=== PATIENT | female | born 1975 | race Caucasian/White ===

== ENCOUNTER 2019-10-09 00:53 | Inpatient (IN) ==
--- NOTE | 2019-10-09 01:31 | PROVIDER DOCUMENTATION ---
HPI-General Adult - General Chief Complaint: Seizure Stated Complaint: seizures Time Seen by Provider: 10/09/19 00:58 Source: other (caregiver) Allergies/Adverse Reactions: Patient Allergies Allergy/AdvReac Type Severity Reaction Status Date / Time Sulfa (Sulfonamide Allergy Unknown Verified 09/08/19 20:40 Antibiotics) Thiazides Allergy Unknown Verified 09/08/19 20:40 vancomycin Allergy RASH Verified 09/08/19 20:40 loop diuretics Allergy VOMITING Uncoded 08/01/18 14:11 Home Medications: Home Medication List Medication Instructions Recorded Confirmed Last Taken Type Ibandronate [Boniva] 150 mg PO Q30D 09/11/15 09/08/19 08/01/18 History Megestrol Acetate 40 mg PO BID 09/11/15 09/08/19 08/01/18 History Oxcarbazepine 1,200 mg PO BID 09/11/15 09/08/19 08/01/18 History Polyethylene Glycol [Polyox 17 gm PO BID 09/11/15 09/08/19 08/01/18 History [id number]] Vit,Calc78/Iron/Folic 1 each PO QAM 09/11/15 09/08/19 08/01/18 History [Prenatabs FA Tablet] Calcium Carbonate [Calcium] 600 mg PO BID 04/07/18 09/08/19 08/01/18 History Montelukast Sodium 10 mg PO DAILY 04/07/18 09/08/19 08/01/18 History Ranitidine [Zantac] 150 mg PO BID 04/07/18 09/08/19 08/01/18 History Lamotrigine 250 mg PO BID #0 08/04/18 09/08/19 08/01/18 Rx Diphenhydramine [Benadryl] 25 mg PO Q4-6H PRN PRN #20 cap 09/08/19 Unknown Rx Famotidine [Pepcid] 20 mg PO BID #20 tab 09/08/19 Unknown Rx Ondansetron [Zofran] 4 mg PO Q4H PRN PRN #30 tab 10/09/19 Unknown Rx Oseltamivir [Tamiflu] 75 mg PO BID #10 cap 10/09/19 Unknown Rx - History of Present Illness -Gen Adult Nature of Presenting Problems: 43yo female presents from care facility with cargiver with CC of seizure like activity and nausea and vomiting. The pt has dx of cognitive imparment from and DPOA is the state. The customer care associate reports that the patient has been having vomiting without diarrhea or abdominal pain. The patient has been having twitching spells that the staff were concerned were seizures. The patient has a hx of "drop" episodes and did have a drop episode yesterday and hit her head. Per the customer care associate the patient is currently at her baseline mental status. The pt has known hx of seizures, but the CC was not like her classic seizures which are generalized. The patient has had foul smelling urine, but no increased frequency. There was a possible fever yesterday at the facility. Review of Systems - Adult - REVIEW OF SYSTEMS - ADULT ROS:: ROS per family (caregiver) Constitutional: reports: fever Eyes: reports: other (injury to the eyelid after fall.) Ears, Nose, Mouth & Throat: reports: other (swallowing difficulty chronic) Cardiovascular: reports: no symptoms reported Respiratory: reports: no symptoms reported. denies: shortness of breath Gastrointestinal: reports: vomiting. denies: abdominal pain, diarrhea Genitourinary: reports: other (foul smelling urine). denies: frequency Musculoskeletal: reports: no symptoms reported Integumentary: reports: no symptoms reported Neurological: reports: seizure Psychiatric: reports: no symptoms reported Endocrine: reports: no symptoms reported Hematologic/Lymphatic: reports: no symptoms reported Allergic/Immunologic: reports: no symptoms reported Past History - Adult - PAST MEDICAL HISTORY-ADULT Review of Records: reports: Old Records Reviewed Major Childhood Illnesses: reports: denies history Cardiovascular: reports: denies history Respiratory: reports: denies history Gastrointestinal: reports: denies history Obstetrical/Gynecological: reports: denies history Genitourinary: reports: denies history Musculoskeletal: reports: denies history Neurological: reports: denies history Endocrine/Immune: reports: denies history Other Conditions: reports: denies history - PRIOR SURGERIES/PROCEDURES Surgical/Procedure History: reports: reviewed, not pertinent - IMMUNIZATION STATUS Childhood Immunizations: See Nurse Assessment Flu Vaccine: See Nurse Assessment - FAMILY HISTORY Family History: reviewed, not pertinent Physical Exam-General - PHYSICAL EXAM-ADULT Initial Vital Signs Reviewed: Yes - CONSTITUTIONAL General Appearance: appears well, alert, no apparent distress - EYES Eyes: other (PERRL). negative: conjuctival exudate, photophobia, scleral icterus - HEAD, EARS, NOSE, MOUTH & THROAT HENMT: normocephalic/atraumatic, moist mucous membranes - NECK Neck: non-tender, supple - RESPIRATORY Respiratory: normal breath sounds, no respiratory distress - CARDIOVASCULAR Cardiovascular: regular rate, rhythm, no edema - GASTROINTESTINAL (ABDOMEN) Abdominal Exam: non tender, soft - MUSCULOSKELETAL Extremity: non-tender. negative: deformity, swelling - SKIN Integumentary: normal color, warm/dry - NEUROLOGIC Neurologic: grossly normal - PSYCHIATRIC Psych/Mental Status: normal mood/affect Progress - PLAN OF CARE/RESULTS Progress/Plan/Lab Results: Orders Category Date Time Status Cardiac Monitoring DIRECTED Care 10/09/19 01:28 Ordered Oxygen Therapy- ED Nursing DIRECTED Care 10/09/19 01:28 Ordered Saline Loc NOW Care 10/09/19 01:28 Ordered CHEST-PORTABLE [RAD] Stat Exams 10/09/19 01:[address] HEAD W/O CONTRAST [CT] Stat Exams 10/09/19 01:29 Ordered CBC WITH ELECTRONIC DIFF [HEME] Stat Lab 10/09/19 01:28 Uncollected CK PROFILE [SP CHEM] Stat Lab 10/09/19 01:28 Uncollected COMPREHENSIVE METABOLIC PANEL [CHEM] Stat Lab 10/09/19 01:28 Uncollected LACTATE, PLASMA [CHEM] Stat Lab 10/09/19 01:28 Uncollected PROTIME WITH INR [COAG] Stat Lab 10/09/19 01:28 Uncollected PTT [COAG] Stat Lab 10/09/19 01:28 Uncollected TROPONIN T HIGH SENSITIVITY Stat Lab 10/09/19 01:28 Uncollected URINALYSIS [URINALYSIS] Stat Lab 10/09/19 01:29 Uncollected Altered Mental Status Stat Oth 10/09/19 01:27 Ordered EKG [EKG] Stat Ther 10/09/19 01:28 Ordered Patient signed out to me pending labs and CT Head. CT not showing anything ac lonny. UA negative, electrolyes normal, Flu A and B positive. Medication levels orders. Caregivers counseled on return precautions and the importance of followup. Patient deemed stable for DC with Neruology and PCP followup. Result Diagrams: 10/09/19 02:41 10/09/19 02:41 - CT/MRI 1 CT Study: Head Impression: Normal - CHANGE OF SHIFT REPORT (ED Provider) 1 Report Given and Care Transferred to:: Dr. Plummer Time of Transfer: 02:02 Items Pending: Labs, CT/MRI Results Departure - Departure Date of Disposition Decision: 10/09/19 Time of Disposition Decision: 04:01 DIAGNOSIS: Seizure disorder, Nausea & vomiting, Influenza Disposition: HOME 01 Certified Medical Emergency: Emergent Condition: Stable Additional Instructions: ED Follow Up Instructions: You have been treated by a care provider in the Emergency Department. These inst ructions are being provided to you so you can have an understanding of how to care for yourself upon discharge. Upon discharge from the Emergency Department, you are responsible for making arrangements for follow-up care by a physician of your choice. Take all prescribed medications as directed. Return to the Emergency Department immediately for any new or worsening symptoms. You may call the Physician Referral phone number at [phone] to obtain a list of Physicians who are taking new patients. Prescriptions: Oseltamivir [Tamiflu] 75 mg PO BID #10 cap Ondansetron [Zofran] 4 mg PO Q4H PRN PRN #30 tab PRN Reason: Nausea Referrals and Follow-Ups: None,PCP [Primary Care Provider] - - Critical Care Note This patient required my direct & personal management of CC.: No Attestation - Physician/ EMORY Attestation Patient care was provided by Advanced Practice Provider:: No The physician spent face to face time with patient:: Yes Advanced Practice Provider documentation review:: Supervising physician onsite and consulted in the evaluation and care of this patient. The physician did have a face to face encounter with the patient.
[2019-10-09 02:58] LABS: BASO# 0.02 X1000 (0.0-0.2); BASO% 0.2 % (0.0-0.8); EOS# 0.04 X1000 (0.0-0.7); EOS% 0.4 % (0.0-10.0); HEMOGLOBIN 14.5 g/dL (12.0-16.0); IMM GRAN# 0.03 X1000 (0.0-0.04); IMM GRAN% 0.3 % (0.0-0.5); LYMPH# 1.26 X1000 (1.2-3.4); LYMPH% 12.8 % (20.5-51.1); MCH 30.3 PG (27-31); MCHC 32.2 g/dL (33-37); MCV 93.9 FL (81-99); MONO# 0.74 X1000 (0.11-0.59); MONO% 7.5 % (1.7-9.3); MPV 9.3 FL (7.4-10.4); NEUT# 7.76 X1000 (1.4-6.5); NEUT% 78.8 % (42.2-75.2); PLT 323 X1000 (130-400); RBC 4.79 XMIL (4.2-5.4); RDW 14.8 % (11.5-14.5); WBC 9.85 X1000 (4.8-10.8)
[2019-10-09 03:02] LABS: INR 1.04; PROTIME 13.7 Seconds (11.0-16.0)
[2019-10-09 03:03] LABS: PTT 24.8 Seconds (22.3-41.8)
[2019-10-09] MEDS ORDERED: ATIVAN IV ONE ×2 (03:04→07:36)
[2019-10-09 03:20] LABS: AGAP 16; ALB/GLOB RATIO 1.2; ALKALINE PHOSPHATASE 91 U/L (32-104); BUN 17 mg/dL (8-22); CALCIUM 8.8 mg/dL (8.8-10.2); CHLORIDE 103 mmol/L (98-107); CK PROFILE 70 U/L (24-173); COSMO 283; CREATININE 0.8 mg/dL (0.5-0.9); ESTIMATED GFR > 60; GLUCOSE 106 mg/dL (70-104); GOT 139 U/L (10-30); GPT 211 U/L (10-36); POTASSIUM 4.4 mmol/L (3.5-5.1); SODIUM 141 mmol/L (136-145); TCO2 22 mmol/L (25-35); TOTAL BILIRUBIN 0.46 mg/dL (0.20-1.00); TOTAL PROTEIN 7.4 g/dL (6.3-8.3)
[2019-10-09 03:33] LABS: URINE SOURCE CATH
[2019-10-09] MEDS ORDERED: NS 1,000 ML IV ONE (03:34)
[2019-10-09 03:35] LABS: BILIRUBIN URINE NEGATIVE (NEGATIVE); BLOOD URINE SMALL (NEGATIVE); COLOR YELLOW; GLUCOSE URINE NEGATIVE (NEGATIVE); KETONE URINE 10 mg/dL (NEGATIVE); LEUKOCYTES URINE NEGATIVE (NEGATIVE); NITRITE URINE NEGATIVE (NEGATIVE); PROTEIN URINE 100 mg/dL (NEGATIVE); SP GRAVITY URINE 1.033; TURBIDITY URINE HAZY (CLEAR); UROBILINOGEN URINE NORMAL (NORMAL)
[2019-10-09 03:37] LABS: UR EPITHELIAL CELLS >10 /HPF (<10); URINE BACTERIA NEGATIVE /HPF; URINE RBC <10 /HPF (<10); URINE WBC <10 /HPF (<10)
[2019-10-09] MEDS ORDERED: ZOFRAN IV ONE (04:02)
[2019-10-09] MEDS ORDERED: KEPPRA 1,500 MG in NS 100 ML IV ONE (04:02)
[2019-10-09] MEDS ORDERED: TAMIFLU PO ONE (04:08)
[2019-10-09] MEDS ORDERED: DILANTIN IV ONE ×2 (07:36→09:00)
--- NOTE | 2019-10-09 07:52 | Diag Imaging Result Doc PS360 ---
EXAM: CHEST-PORTABLE 10/09/2019 HISTORY: Nausea, vomiting, abnormal behavior TECHNIQUE: AP portable at 0206 COMMENT: The patient is rotated slightly to the right. There is a granuloma in the left lower lobe. Considering differences in technique and projection there has been no significant change since 08/02/2018. IMPRESSION: No acute disease. Electronically signed by Logan Calderon 10/09/2019 7:50 AM
--- NOTE | 2019-10-09 08:08 | Diag Imaging Result Doc PS360 ---
EXAM: CT HEAD W/O CONTRAST 10/09/2019 HISTORY: Head injury TECHNIQUE: This exam was performed using automated exposure control, adjustment of mA or kV according to patient size, and/or use of iterative reconstruction technique. COMMENT: There is no evidence of mass effect, bleed, or abnormal extra-axial fluid collection. There is hyperostosis of the calvarium and calcification of the falx cerebri. Compared to the previous study of 04/07/2018 considering motion artifact on the current studies are has been no significant change. The paranasal sinuses are clear. IMPRESSION: No evidence of acute intracranial disease. Electronically signed by Logan Calderon 10/09/2019 8:06 AM
--- NOTE | 2019-10-09 08:55 | HISTORY AND PHYSICAL ---
PRIMARY CARE PHYSICIAN: MAHOGANY Blackwell. NEUROLOGIST: Dr. Marley. CHIEF COMPLAINT: Fever, chills, decreased alertness, decreased appetite, some nausea and vomiting, and seizure activity over the past couple of days that had progressively worsened. HISTORY OF PRESENTING ILLNESS: This is a 43-year-old, female with profound intellectual disabilities, resides [facility] a local [facility], presented to the emergency room with caregiver, stating that she had not eaten or drank anything over the past 2 days, had a subjective fever, chills, some possible seizure activity with a known history of seizures, and some nausea and vomiting. She has a history of "drop episodes," and did have a drop episode yesterday and hit her head, but is at her current baseline mental status and nonverbal. Per the caregiver at bedside, she is usually more alert with her eyes open and will talk some with her eyes, but today is very lethargic, not responding to very much stimuli. She was found to have influenza A and B. Her laboratory data was otherwise fairly unremarkable. She did have a bump in her AST and ALT at 139 and 211. Plasma lactate was 3. Urinalysis was negative. Chest x-ray showed no acute disease. We did a head CT, but that is pending at this time. She is tachycardic in the 140s and 150s, most likely from the flu and being dehydrated. She also is noted to have not taken her medications over the past couple of days, which is most likely the cause of the seizure activity, but we will admit her for further evaluation and treatment. PAST MEDICAL HISTORY: Profound intellectual disability, seizures, esophageal stricture, pica, osteopenia, and constipation. PAST SURGICAL HISTORY: Esophageal dilation from her stricture. FAMILY HISTORY: Reviewed and noncontributory. SOCIAL HISTORY: She currently resides at [facility]. No tobacco, alcohol, or illicit drug use. ALLERGIES: Sulfa, thiazides, vancomycin, loop diuretics. HOME MEDICATIONS: A current list will need to be obtained, reconciled, reviewed, and restarted when appropriate. Will place an order for nursing to update and confirm home medications. IMAGING AND LABORATORY DATA: Laboratory data showed a white blood cell count of 9.85, hemoglobin 14.5, hematocrit 45, platelets 323,000. PT and INR of 13.7 and 1.04. Sodium 141, potassium 4.4, chloride 103, CO2 of 22, BUN of 17, creatinine 0.8, glucose 106. AST of 139, ALT 211. Creatine kinase of 70. Troponin T high-sensitivity of 9. Plasma lactate was 3. Urinalysis was negative. Chest x-ray showed no acute disease. Head CT is pending. REVIEW OF SYSTEMS: Unable to obtain from the patient. Caregiver at bedside does state that she has had a subjective fever, chills, seizure activity, decreased appetite, and no medications. Also had some nausea and vomiting, and all of these have been over the past couple of days. PHYSICAL EXAMINATION: VITAL SIGNS: On arrival, she had a temperature of 98.2 degrees, pulse 58, respirations 20, blood pressure 135/78. She is now tachycardic in the 140s and 150s. GENERAL: This is a 43-year-old, profound intellectual disabled female, nonverbal, unable to answer any questions, is lying in the bed, noted to be shaking uncontrollably, which appears to be chills and not seizure activity at this time. HEENT: Normocephalic, atraumatic. Normal ENT inspection. Oropharynx and nares are clear. Eyes: Pupils are equal, round, reactive to light and accommodation. Extraocular movements are intact. NECK: Normal inspection. Normal range of motion. LUNGS: Clear to auscultation bilaterally with equal lung expansion and chest wall movement. HEART: Regular rate and rhythm. No murmurs, rubs, or gallops. ABDOMEN: Soft, nontender, nondistended. Bowel sounds are present x4 quadrants. MUSCULOSKELETAL: Unable to assess at this time. NEUROLOGIC: Unable to assess. The patient is known to be nonverbal and is noted to be lethargic at this time. ASSESSMENT: 1. Influenza A and B. 2. Tachycardia. 3. Elevated liver function tests. 4. Profound intellectual disability and nonverbal. 5. Recurrent seizures. PLAN: She will be admitted to the medical unit, placed on telemetry. Will give her a regular diet, and encourage her to drink and eat as much as possible. Will give her normal saline at 125 mL, Lovenox 40 mg subcutaneously every 24 hours for DVT prophylaxis. She got a first dose of Tamiflu 75 mg p.o. in the ER. Will continue that b.i.d. for 5 days. She got Dilantin 100 mg IV x1. She also got a dose of Keppra 1500 mg IV x1, Ativan 1 mg IV x2 separate doses. She got a liter bag of fluids. Will place her on respiratory isolation due to her flu. Will do serial lactates. Will recheck a CBC and BMP in the a.m. Will consult Neurology in the a.m. I feel that her seizure activity, 1) may be because she has not taken any of her medications in the past 2 days, and 2) some of what the caregiver feels is seizures, I witnessed to be chills and maybe even just some shaking, but we will have Neurology evaluate further. Further orders after seen by attending and middleware consultant. Dictated by MAHOGANY Helms for Vignesh Esparza MD cc: MAHOGANY Helms MD I agree with most components of history, physical, assessment and plan. A separate addendum has been dictated. MTDD
[2019-10-09] MEDS ORDERED: NS IV ONE (09:00)
[2019-10-09] MEDS ORDERED: TYLENOL PO PRN (10:27)
[2019-10-09] MEDS ORDERED: NS 1,000 ML IV SCH (10:27)
[2019-10-09] MEDS ORDERED: ZOFRAN IV PRN (10:27)
[2019-10-09] MEDS ORDERED: MISC. PHARMACY COMMUNICATION SCH (11:15)
[2019-10-09] MEDS: NS 1,000 ML IV SCH (13:37)
[2019-10-09] MEDS: LOVENOX SUBQ SCH (13:37)
--- NOTE | 2019-10-09 15:06 | HISTORY AND PHYSICAL ---
ADDENDUM: I agree with most components of the history, physical, assessment, and plan. In brief, Ms. Moreno is a 43-year-old lady with a past medical history of intellectual impairment, seizures, esophageal stricture, constipation, osteopenia, who comes in with chief complaints of decreased oral intake, nausea, vomiting, low-grade fever of 99.1 degrees Fahrenheit, decreased responsiveness, not being able to take her oral medications for about 3 to 4 days' duration with increasing seizure frequency. In the emergency room she was found to have a temperature of 98.2 degrees, pulse of 113, respiratory rate 22, blood pressure 152/108, and oxygen saturation of 97% on room air. Her initial labs were remarkable for positive influenza A and B, with negative head CT for acute intracranial pathology. So the hospitalist team was consulted for further management of her increasing seizures as well as her lethargy. At baseline Ms. Moreno is nonverbal and is bed-bound and is dependent on all of her activities of daily living. However, at the long term, the long term personnel do pick her up and help her lie in the wheelchair to move her around. The long term personnel is currently at bedside and the source of history and most of the history was obtained from her. I also called the long term's nurse practitioner to learn more about the history. VITAL SIGNS: Temperature 98.6 degrees, pulse 80, respiratory rate 16, blood pressure 141/84, saturating 97% on 2 L nasal cannula. PHYSICAL EXAMINATION: GENERAL: She is lethargic, but arousable to strong verbal stimuli. HEENT: She has poor dentition and missing teeth. Oral cavity is moist. LUNGS: Air entry bilaterally equal. No wheeze, rhonchi, crackles. CARDIOVASCULAR: S1, S2 normal. No murmur, rub, or gallop. ABDOMEN: Soft, nontender. EXTREMITIES: No lower extremity edema. NEUROLOGIC: She does have flexion deformity of bilateral hip, knee joints, and ankle joints. She becomes alert to verbal stimuli. Does not answer questions as she is nonverbal. She remains in the right lateral position. She often times moves her arms and legs spontaneously. LABS: Suggestive of WBC of 9.8, hemoglobin 14.5, platelet 323,000. INR 1.04. Sodium 141, potassium 4.4, BUN of 17, creatinine 0.8, AST of 139, ALT of 211. MICROBIOLOGY: Influenza screen positive for influenza A and B. Blood cultures have been collected. Throat culture is pending. Group A rapid streptococcal antigen was negative. IMAGING: Chest x-ray on presentation did not have any acute disease. Head CT on presentation did not have any acute evidence of intracranial disease. EKG is pending. ASSESSMENT AND PLAN: 1. Lethargy with acute encephalopathy, likely in the setting of increasing seizures and influenza. 2. Influenza. 2. Recurrent seizure with prior history of seizures and intellectual disability. 3. Clinical volume depletion based on clinical exam, due to poor oral intake, nausea, and vomiting in the setting of influenza. 4. Suspected sepsis based on low-grade fever and tachycardia in the setting of influenza without any evidence of pneumonia. PLAN: The patient received 1 L of intravenous bolus. I will start her on continuous intravenous fluids. She was given 1500 mg of Keppra load. I will start her on 750 mg of Keppra intravenous b.i.d. I will insert an NG tube and will give all of her home antiseizure medications through NG tube once it is secured. I will also start her on oseltamivir and watch for any signs of pneumonia. She did have evidence of lactic acidosis on presentation, which seems to be improving. I discussed the plan of care with the long term person and I also called the patient's long term nurse and discussed the plan of care. All of their questions have been satisfactorily answered. cc: Vignesh Esparza MD MTDD
[2019-10-09] MEDS: KEPPRA 750 MG in NS 100 ML IV SCH (15:21)
[2019-10-09] MEDS: ATIVAN IV PRN ×2 (15:38→21:11)
--- NOTE | 2019-10-09 16:04 | Diag Imaging Result Doc PS360 ---
EXAM: CHEST-PORTABLE 10/09/2019 HISTORY: ng tube placement TECHNIQUE: AP portable at 1551 COMMENT: There is an NG tube with its tip in the distal thoracic esophagus. IMPRESSION: NG tube in the esophagus. Electronically signed by Logan Calderon 10/09/2019 4:02 PM
--- NOTE | 2019-10-09 17:11 | EKG Report ---
Test Performed on : 10/09/2019 09:05:25 AM Test Reason : Nausea and vomting Blood Pressure : / mmHG Vent. Rate : 121 BPM Atrial Rate : 121 BPM P-R Int : 116 ms QRS Dur : 066 ms QT Int : 320 ms P-R-T Axes : 039 017 015 degrees QTc Int : 454 ms Sinus tachycardia. Possible Left atrial enlargement Borderline ECG When compared with ECG of 02-AUG-2018 06:50, Vent. rate has increased BY 54 BPM Non-specific change in ST segment in Inferior leads Unconfirmed Result
--- NOTE | 2019-10-09 17:46 | Diag Imaging Result Doc PS360 ---
EXAM: CHEST-PORTABLE 10/09/2019 HISTORY: ng tube placement TECHNIQUE: AP portable upright at 1717 COMMENT: There is an NG tube with its tip in the stomach. IMPRESSION: NG tube in the stomach. Electronically signed by Logan Calderon 10/09/2019 5:43 PM
[2019-10-09] MEDS: TRILEPTAL PO SCH ×2 (17:58→21:12)
[2019-10-09] MEDS: TAMIFLU PO SCH ×2 (17:58→21:11)
[2019-10-09] MEDS: LAMICTAL PO SCH ×2 (17:59→21:11)
[2019-10-09] MEDS: MILK OF MAGNESIA PO SCH (21:11)
[2019-10-09] MEDS: MEGACE PO SCH (21:11)
[2019-10-09] MEDS: CALTRATE 600 PO SCH (21:11)
[2019-10-09] MEDS: PEPCID PO SCH (21:11)
[2019-10-09] MEDS: COLACE PO SCH (21:11)
[2019-10-09] MEDS: MIRALAX PO SCH (21:12)
[2019-10-10] MEDS: ATIVAN IV PRN (00:26)
[2019-10-10] MEDS: KEPPRA 750 MG in NS 100 ML IV SCH ×2 (01:04→13:39)
[2019-10-10] MEDS ORDERED: HALDOL IM ONE (03:40)
--- NOTE | 2019-10-10 06:29 | Diag Imaging Result Doc PS360 ---
CHEST-PORTABLE - 10/10/2019 INDICATION: NG tube placement COMPARISON: 10/09/2019 FINDINGS: There is a nasogastric tube in good position in the stomach. The lungs are grossly clear and the heart size is normal. IMPRESSION: Nasogastric tube in the stomach. Electronically signed by Don Neff 10/10/2019 6:27 AM
[2019-10-10] MEDS: NS 1,000 ML IV SCH ×2 (06:44→11:59)
[2019-10-10] MEDS ORDERED: HALDOL IV PRN (06:51)
[2019-10-10 08:25] LABS: BASO# 0.02 X1000 (0.0-0.2); BASO% 0.3 % (0.0-0.8); EOS# 0.06 X1000 (0.0-0.7); EOS% 0.8 % (0.0-10.0); HEMATOCRIT 38.6 % (37.0-47.0); HEMOGLOBIN 12.7 g/dL (12.0-16.0); LYMPH# 1.34 X1000 (1.2-3.4); LYMPH% 17.4 % (20.5-51.1); MCH 31.4 PG (27-31); MCHC 32.9 g/dL (33-37); MCV 95.5 FL (81-99); MONO# 0.57 X1000 (0.11-0.59); MONO% 7.4 % (1.7-9.3); NEUT# 5.71 X1000 (1.4-6.5); NEUT% 74.1 % (42.2-75.2); PLT 234 X1000 (130-400); RBC 4.04 XMIL (4.2-5.4); RDW 14.7 % (11.5-14.5)
[2019-10-10 08:39] LABS: BUN 14 mg/dL (8-22); CHLORIDE 114 mmol/L (98-107); COSMO 289; CREATININE 0.6 mg/dL (0.5-0.9); ESTIMATED GFR > 60; SODIUM 145 mmol/L (136-145)
[2019-10-10 08:41] LABS: AGAP 13; GLUCOSE 98 mg/dL (70-104); POTASSIUM 4.5 mmol/L (3.5-5.1); TCO2 18 mmol/L (25-35)
--- NOTE | 2019-10-10 13:34 | PROGRESS NOTE ---
DATE: 10/10/2019 INTERVAL HISTORY: No acute events overnight. The patient did pull out her NG tube one more time and it was replaced. I was informed she pulled out her NG tube again today. She is more alert today than yesterday, and appears a little more active. The sitter at bedside agrees. SUBJECTIVE: Ms. Moreno is nonverbal at baseline, and does not participate in clinical encounter meaningfully. OBJECTIVE: Vital Signs: Temperature 99.4 degrees, pulse 63, respiratory rate 16, and blood pressure 119/48. She is saturating 98% on room air. General: She is alert. She is trying to reach out to her NG tube. Keeps her eyes open. HEENT: She has poor dentition and missing teeth. Oral cavity is moist. Lungs: Air entry bilaterally equal. No wheezing or crackles. Cardiovascular: S1 and S2 are normal. No murmur or gallop. Abdomen: Soft, nontender. Extremities: No evidence of edema. She has flexion deformity of bilateral hip, knee and ankle joints. She is active inside the bed. She remains in right lateral position, and moving arms and legs spontaneously. Input and output suggests one bowel movement. LABORATORY: Labs suggestive of no leukocytosis. Hemoglobin 12.7 and platelets 235,000. She does have carbon dioxide 18, BUN of 14, creatinine 0.6. Her lactic acidosis yesterday had resolved. Carbamazepine levels were low. MICROBIOLOGY: No positive data so far except influenza. ASSESSMENT AND PLAN: 1. Lethargy with acute encephalopathy in the setting of increasing seizure, clinical volume depletion, and influenza. Her head CT did not have any evidence of acute encephalopathy. Continue to address underlying issues. She appears to be becoming more alert now. 2. Influenza type A and type B. Continue oseltamivir through NG tube. I will also keep her on intravenous fluid resuscitation until her oral intake improves. 3. Recurrent seizures with prior history of seizures and intellectual disability. Her recent infection could be contributing to it. I will continue at higher dose of Keppra intravenously. I will also continue her home dose of lamotrigine and oxcarbazepine. I asked the patient's sitter to acquire felbamate, which we do not have in out formulary. I discussed with the pharmacy to acquire it if we could not get it [facility]. I appreciate Neurology's recommendations. 4. Generalized pruritic rash. Likely urticaria. It could be in the setting of recent viral infection. However, according to history, this has been happening since several weeks. There is no identifiable allergen or addition of new medication. I will start patient on loratadine. Depending on her course, consider starting her on Benadryl. 5. Suspected sepsis on presentation with low-grade fever and tachycardia in the setting of influenza without any evidence of pneumonia. I will follow up with final blood culture results. I will avoid antibiotics until then. 6. Disposition: Continue to monitor the patient inside the hospital. I will keep her NPO except medications until she becomes more alert and starts taking by mouth. Plan of care discussed with the patient's sitter at bedside. Yesterday, I had a detailed discussion with plan of care with [facility] nurse. Their questions had been answered. Apparently, patient's mother's contact information is not available to me at the moment. According to the [facility]iary nurse, she was only visiting patient intermittently on the holidays. cc: MD OMKAR Beltre
[2019-10-10] MEDS: PRECARE PO SCH (13:37)
[2019-10-10] MEDS: MILK OF MAGNESIA PO SCH ×2 (13:37→23:30)
[2019-10-10] MEDS: LOVENOX SUBQ SCH (13:37)
[2019-10-10] MEDS: LAMICTAL PO SCH ×2 (13:37→23:30)
[2019-10-10] MEDS: MEGACE PO SCH ×2 (13:37→23:30)
[2019-10-10] MEDS: PEPCID PO SCH ×2 (13:38→23:31)
[2019-10-10] MEDS: TRILEPTAL PO SCH ×2 (13:38→23:31)
[2019-10-10] MEDS: MIRALAX PO SCH ×2 (13:38→23:31)
[2019-10-10] MEDS: CALTRATE 600 PO SCH ×2 (13:38→23:30)
[2019-10-10] MEDS: TAMIFLU PO SCH ×2 (13:39→23:31)
[2019-10-10] MEDS: COLACE PO SCH ×2 (13:39→23:30)
[2019-10-10] MEDS: CLARITIN NG SCH (14:08)
[2019-10-10] MEDS: PATIENT'S OWN MED PO SCH ×3 (15:29→23:31)
--- NOTE | 2019-10-10 21:29 | NEUROLOGY CONSULTATION ---
DATE: 10/10/2019 REASON FOR CONSULT: Breakthrough seizures. HISTORY OF PRESENT ILLNESS: This is a 43-year-old female with history of static encephalopathy and intractable epilepsy, on 4 drug polytherapy, who was admitted and found to have influenza. 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 Apparently, she had decreased intake, nausea, vomiting, fever, and reduced responsiveness. She was not taking her medications for a couple of days or so. The frequency of her seizures increased during this time. They brought her to the emergency room and she was diagnosed with influenza. Head CT was negative. She is being treated for influenza now. Initially, the patient had NG tube, but she pulled that out. I believe they have been able to get her to take her medications orally now as I see that documented this afternoon. I reviewed our clinic notes for her antiepileptics which currently we have as: 1. Lamotrigine 200 mg tablets, Sig 1 p.o. twice daily. 2. Oxcarbazepine 600 mg tablets, Sig 2 p.o. twice daily. 3. Felbamate 600 mg tablets, Sig 1 p.o. 3 times daily. 4. Levetiracetam 500 mg tablets, Sig 1 p.o. twice daily. This is what we have her down as taking; however, I also happened to come across a medication administration record data from her [facility], I believe, and I see her having lamotrigine listed twice. The second lamotrigine is written as 100 mg tablets, Sig 1/2 tablet twice daily. This would be a total of 500 mg daily. I also see that while hospitalized, she has had an increase in her levetiracetam to 750 mg twice daily given IV. She is taking, I believe, her own felbamate. In June 2019, CBC and CMP were normal. Levetiracetam level was 7.7 (12-46), lamotrigine level 4.6 (4-18), oxcarbazepine level 36.4 (8-35), felbamate level 33 (30-50). PAST MEDICAL HISTORY: Includes: 1. Static encephalopathy. 2. Intractable epilepsy. 3. Esophageal stricture. 4. Pica. 5. Osteopenia. 6. Constipation. SOCIAL HISTORY: She lives in a fci. No tobacco, alcohol, or illicits. FAMILY HISTORY: Unknown. ALLERGIES: Listed to sulfathiazines. She had a reaction to vancomycin while in the hospital in 2018. REVIEW OF SYSTEMS: Unobtainable due to the patient's mental impairment. PHYSICAL EXAMINATION: Vital Signs: Current afebrile, blood pressure 113/72, pulse 64, respirations 12, 100% on room air. Neurologic: Ms. Moreno is supine in bed, curled up into the position. She has her eyes closed. She very briefly opened her eyes to me, but closed them. She did not follow commands. She is nonverbal. Her pupils were equal, round, and reactive to light. DIAGNOSTICS: Head CT noncontrast on admission showing no acute findings. Labs reviewed in the chart. AST 139, ALT 211. She is positive for influenza A and B. ASSESSMENT AND PLAN: Static encephalopathy with intractable epilepsy and breakthrough seizures, in the setting of underlying infection and missing AED doses with reduced p.o. intake. Would recommend continuing her outpatient antiepileptic medications at the current outpatient doses if we are indeed able to administer the medications by mouth. I have adjusted the oxcarbazepine dose to reflect her outpatient dose. I will also adjust the lamotrigine dosage to reflect what seems to be the dosage that she is receiving at the [facility], at least from the May 2019 report. If she does not perk up in the next day or so, we may consider a routine electroencephalogram. Some of the somnolence could be from the Keppra loading dose, but I am not certain about that. My hope is that she continues to improve now, receiving her antiepileptic medications and while receiving treatment for influenza. Continue seizure precautions. Will send oxc and felbamate levels. Thank you for the consultation. cc: MD OMKAR Meeks
[2019-10-11] MEDS: KEPPRA 750 MG in NS 100 ML IV SCH ×2 (01:14→14:32)
[2019-10-11] MEDS: NS 1,000 ML IV SCH (01:14)
[2019-10-11 08:22] LABS: BASO# 0.01 X1000 (0.0-0.2); BASO% 0.1 % (0.0-0.8); HEMATOCRIT 36.6 % (37.0-47.0); HEMOGLOBIN 11.7 g/dL (12.0-16.0); LYMPH# 1.24 X1000 (1.2-3.4); LYMPH% 17.9 % (20.5-51.1); MCH 30.2 PG (27-31); MCV 94.6 FL (81-99); MONO# 0.22 X1000 (0.11-0.59); MONO% 3.2 % (1.7-9.3); MPV 9.9 FL (7.4-10.4); NEUT# 5.47 X1000 (1.4-6.5); NEUT% 78.8 % (42.2-75.2); PLT 244 X1000 (130-400); RBC 3.87 XMIL (4.2-5.4); RDW 14.3 % (11.5-14.5); WBC 6.94 X1000 (4.8-10.8)
[2019-10-11 08:58] LABS: AGAP 15; ALB/GLOB RATIO 0.9; ALBUMIN 2.8 g/dL (3.5-5.0); ALKALINE PHOSPHATASE 71 U/L (32-104); BUN 12 mg/dL (8-22); CALCIUM 8.3 mg/dL (8.8-10.2); CHLORIDE 107 mmol/L (98-107); COSMO 281; CREATININE 0.5 mg/dL (0.5-0.9); ESTIMATED GFR > 60; GLUCOSE 72 mg/dL (70-104); GOT 92 U/L (10-30); GPT 165 U/L (10-36); POTASSIUM 4.3 mmol/L (3.5-5.1); SODIUM 142 mmol/L (136-145); TCO2 20 mmol/L (25-35); TOTAL BILIRUBIN 0.58 mg/dL (0.20-1.00); TOTAL PROTEIN 5.8 g/dL (6.3-8.3)
[2019-10-11] MEDS: LAMICTAL PO SCH (10:53)
[2019-10-11] MEDS: CALTRATE 600 PO SCH (10:53)
[2019-10-11] MEDS: MILK OF MAGNESIA PO SCH (10:53)
[2019-10-11] MEDS: COLACE PO SCH (10:53)
[2019-10-11] MEDS: TAMIFLU PO SCH (10:54)
[2019-10-11] MEDS: PEPCID PO SCH (10:54)
[2019-10-11] MEDS: PRECARE PO SCH (10:54)
[2019-10-11] MEDS: MEGACE PO SCH (10:54)
[2019-10-11] MEDS: TRILEPTAL PO SCH ×2 (10:55→23:59)
[2019-10-11] MEDS: MIRALAX PO SCH (10:55)
[2019-10-11] MEDS: LOVENOX SUBQ SCH (10:55)
[2019-10-11] MEDS: CLARITIN NG SCH (10:55)
[2019-10-11] MEDS: PATIENT'S OWN MED PO SCH ×2 (10:56→14:32)
[2019-10-11] MEDS: ATIVAN IV PRN (14:43)
--- NOTE | 2019-10-11 20:23 | NEUROLOGY PROGRESS NOTE ---
DATE: 10/11/2019 SUBJECTIVE: No major overnight events. This afternoon, the nurse said the patient had some brief repetitive upward deviation of both of her eyes. She administered 1 mg of lorazepam and the movements subsided after about 2 minutes. Apparently, the caregiver had reported that is not a typical seizure for her, but they were not sure. The patient's liquid oxcarbazepine was switched over to pill form. They were having a difficult time giving her the liquid. She takes pill form, I believe as an outpatient. OBJECTIVE: Afebrile, blood pressure 116/60, pulse 78. Ms. Moreno is supine in bed with eyes closed. She appears to be resting comfortably. She briefly opens her eyes to name calling and mild tactile stimulation. She did not follow commands. She easily drifted back to sleep. She did use her right hand semi-purposefully. She remains curled in a position. LABORATORY DATA: Labs today reviewed in the chart. Carbamazepine was less than 2, but she is not taking that. Lamotrigine is 0.9. Levetiracetam is 2.2. I believe that was taken before she received a loading dose on admission. She also had not been taking her seizure medications in a couple of days because she was unwell and not taking p.o. before coming to the hospital. Others are pending. ASSESSMENT AND PLAN: Static encephalopathy with intractable epilepsy and breakthrough seizures in the setting of underlying infection (influenza) and missing AED doses with reduced p.o. intake. I believe she is now taking her home medications orally. I adjusted some doses yesterday. She is still taking a bit higher dose of Keppra, and I am not certain if her sedation is related to the loading dose or not. There was a question of atypical seizure activity earlier today, and she received lorazepam and now she remains sleepy. I think I will go ahead and order routine EEG to make sure we are not missing subclinical seizures since she missed several of her medications before being admitted. She continues on treatment for influenza. Continue seizure precautions. cc: Minnie Smith MD
--- NOTE | 2019-10-11 21:16 | PROGRESS NOTE ---
DATE: 10/11/2019 SUBJECTIVE: The patient is a little more awake today. Her caregiver states that she was able to take her pills this morning without any difficulty. OBJECTIVE: Vital Signs: Temperature 98 degrees, blood pressure 105/65, heart rate 76, respirations 16, O2 saturation 99% on room air. General: This is a middle-aged female lying in bed in no acute distress. Heart: S1, S2 normal. Regular rate and rhythm. Lungs: Equal air entry bilaterally. No wheezing. No rales. No rhonchi. Abdomen: Positive bowel sounds. Soft, nontender, nondistended. Extremities: No edema. No cyanosis. Neurologic: The patient is alert and oriented to person. She is able to move all 4 extremities. LABS: White blood cell count 6.9, hemoglobin 11, hematocrit 36, platelets 244,000. The sodium 142, potassium 4.3, chloride 107, CO2 20, BUN 12, creatinine 0.5. AST 92, ALT 165. ASSESSMENT AND PLAN: 1. Static encephalopathy. Monitor for improvement. 2. Breakthrough seizures in the in the setting of epilepsy. The patient's seizure medications have been adjusted by Dr. Smith. We will continue to monitor the patient closely. 3. Rash. The etiology is unknown. However, the rash appears to be improving. We will continue to monitor for resolution. 4. Influenza A and B. Continue on Tamiflu. 5. Constipation. Continue on Colace. 6. Elevated LFTs. Monitor closely. 7. Deep vein thrombosis prophylaxis. Continue on Lovenox. cc: Avelina Galvez MD [facility] CENTERGary
[2019-10-12] MEDS: LAMICTAL PO SCH ×2 (00:01→11:54)
[2019-10-12] MEDS: MIRALAX PO SCH ×2 (00:01→11:54)
[2019-10-12] MEDS: TAMIFLU PO SCH ×2 (00:01→11:55)
[2019-10-12] MEDS: MILK OF MAGNESIA PO SCH ×2 (00:02→11:54)
[2019-10-12] MEDS: KEPPRA 750 MG in NS 100 ML IV SCH ×2 (02:07→13:23)
[2019-10-12] MEDS: NS 1,000 ML IV SCH (04:06)
[2019-10-12 08:18] LABS: AGAP 18; BUN 7 mg/dL (8-22); CALCIUM 8.3 mg/dL (8.8-10.2); CHLORIDE 104 mmol/L (98-107); COSMO 274; CREATININE 0.6 mg/dL (0.5-0.9); ESTIMATED GFR > 60; GLUCOSE 77 mg/dL (70-104); POTASSIUM 4.2 mmol/L (3.5-5.1); SODIUM 139 mmol/L (136-145); TCO2 17 mmol/L (25-35)
[2019-10-12] MEDS: CALTRATE 600 PO SCH ×2 (11:53)
[2019-10-12] MEDS: PATIENT'S OWN MED PO SCH ×3 (11:53→15:04)
[2019-10-12] MEDS: LOVENOX SUBQ SCH (11:53)
[2019-10-12] MEDS: COLACE PO SCH ×2 (11:53)
[2019-10-12] MEDS: CLARITIN NG SCH (11:53)
[2019-10-12] MEDS: MEGACE PO SCH ×2 (11:54)
[2019-10-12] MEDS: TRILEPTAL PO SCH (11:54)
[2019-10-12] MEDS: PEPCID PO SCH ×2 (11:55)
[2019-10-12] MEDS: PRECARE PO SCH (11:55)
--- NOTE | 2019-10-12 13:42 | NEUROLOGY PROGRESS NOTE ---
DATE: 10/12/2019 Ms. Moreno is well known to our practice. Dr. Smith saw her earlier this week for Neurology evaluation. She has a chronic seizure disorder associated with her static encephalopathy, and she has a long history of increased seizure frequency associated with medical illness, particularly fever and infectious illness. She presents this time with flu. She had missed some seizure medicine doses associated with her poor p.o. intake. She had some seizures. EEG is ordered for this morning. Her baseline AED regimen has been lamotrigine 250 mg b.i.d., oxcarbazepine 1200 mg b.i.d., felbamate 600 mg t.i.d., levetiracetam 500 mg b.i.d. Seizures were more frequent about 6 months ago during brief trial off of levetiracetam and so that was resumed. Levetiracetam dose has been increased to 750 mg q.12 hours here, and her other 3 seizure medicines have continued at preadmission doses. On presentation, her levels were understandably low including lamotrigine 0.9 and levetiracetam 2.2. Felbamate and oxcarbazepine metabolite were not checked on admission. Last available levels before admission were 02/21/2019 lamotrigine 4.8, oxcarbazepine metabolite 37, felbamate 33.4, and I believe she may have been off levetiracetam at that time with no levetiracetam level on that date. On exam today, she is lethargic and her appearance is very similar to what I have seen when she has been hospitalized in the past with medical illness. I do not have any urgent suggestion now. I am optimistic seizure control will continue with treatment and improvement in her medical illness. I will check on the EEG when it is completed. We have followed Ms. Moreno as an outpatient and will be glad to see her again after discharge. Thank you for asking Neurology to see Ms. Moreno. cc: MD OMKAR Francisco III
--- NOTE | 2019-10-12 19:22 | EEG REPORT ---
DATE: 10/11/2019 COMMENT: This is a digitally recorded EEG done portably at the bedside on a 43-year-old patient with static encephalopathy, chronic seizure disorder, recent increased seizure frequency associated with medical illness including flu. FINDINGS: There is generalized slowing, mostly 2 to 3 hertz delta across the hemispheres symmetrically during waking. There is poorly sustained 4 to 6 hertz polymorphic and rhythmic theta across the central and posterior regions. There is muscle contraction artifact and eye blink artifact. Sustained posterior dominant rhythm was not identified. Photic stimulation did not significantly alter the record. At times, there is rhythmic high-amplitude generalized slowing at 1.0 to 2.5 hertz. Some of this is sharply contoured, but I could not distinguish definite sharp wave or other definite epileptiform discharge. INTERPRETATION: Abnormal EEG because of generalized slowing. CORRELATION: This is indicative of a diffuse encephalopathy and is nonspecific. cc: MD Minnie Francisco III, MD [facility]ITALGary
--- NOTE | 2019-10-12 20:10 | PROGRESS NOTE ---
DATE: 10/12/2019 SUBJECTIVE: The patient is sleepy and lethargic this morning. She has been afebrile. She is barely eating according to the sitter at the bedside. OBJECTIVE: Vital Signs: Temperature 98.3 degrees, blood pressure 132/73, heart rate 71, respirations 14. General: This is a middle-aged female lying in bed in no acute distress. Heart: S1, S2 normal. Regular rate and rhythm. Lungs: Clear to auscultation bilaterally. Abdomen: Positive bowel sounds. Soft, nontender, nondistended. Extremities: No edema. No cyanosis. Neurologic: The patient is lethargic. She is able to move all 4 extremities. LABORATORY DATA: Reviewed. ASSESSMENT AND PLAN: 1. Static encephalopathy secondary to epilepsy. Continue to monitor closely. 2. Breakthrough seizures in the setting of epilepsy. Continue to monitor closely. Neurology is adjusting the patient's medications. 3. Rash. Improved. 4. Influenza A and B. Continue on Tamiflu. 5. Transaminitis. Slowly improving. Continue to monitor closely. 6. Deep vein thrombosis prophylaxis. Continue on Lovenox. cc: Avelina Galvez MD
[2019-10-13] MEDS: PATIENT'S OWN MED PO SCH ×4 (00:05→23:58)
[2019-10-13] MEDS: CALTRATE 600 PO SCH ×3 (00:16→23:57)
[2019-10-13] MEDS: PRECARE PO SCH ×2 (00:16→08:41)
[2019-10-13] MEDS: COLACE PO SCH ×2 (00:17→08:39)
[2019-10-13] MEDS: TAMIFLU PO SCH ×3 (00:17→23:57)
[2019-10-13] MEDS: LAMICTAL PO SCH ×3 (00:17→23:55)
[2019-10-13] MEDS: MILK OF MAGNESIA PO SCH ×3 (00:17→08:39)
[2019-10-13] MEDS: MIRALAX PO SCH ×2 (00:18→08:39)
[2019-10-13] MEDS: TRILEPTAL PO SCH ×3 (00:18→23:57)
[2019-10-13] MEDS: MEGACE PO SCH ×3 (00:18→23:57)
[2019-10-13] MEDS: PEPCID PO SCH ×3 (00:18→23:57)
[2019-10-13] MEDS: KEPPRA 750 MG in NS 100 ML IV SCH ×4 (00:19→23:58)
[2019-10-13] MEDS: NS 1,000 ML IV SCH ×2 (04:45→06:08)
[2019-10-13] MEDS: CLARITIN NG SCH (08:41)
[2019-10-13] MEDS: LOVENOX SUBQ SCH ×2 (08:52→11:11)
[2019-10-13 09:03] LABS: ALBUMIN 3.1 g/dL (3.5-5.0); DIRECT BILIRUBIN 0.1 mg/dL (0.00-0.20); TOTAL BILIRUBIN 0.39 mg/dL (0.20-1.00); TOTAL PROTEIN 6.2 g/dL (6.3-8.3)
[2019-10-13 09:15] LABS: AGAP 15; BUN 6 mg/dL (8-22); CALCIUM 8.3 mg/dL (8.8-10.2); CHLORIDE 103 mmol/L (98-107); COSMO 276; CREATININE 0.5 mg/dL (0.5-0.9); ESTIMATED GFR > 60; GLUCOSE 79 mg/dL (70-104); POTASSIUM 3.5 mmol/L (3.5-5.1); SODIUM 140 mmol/L (136-145); TCO2 22 mmol/L (25-35)
--- NOTE | 2019-10-13 11:53 | NEUROLOGY PROGRESS NOTE ---
DATE: 10/13/2019 Ms. Moreno looks significantly brighter today. She is more attentive. She has not had clinically recognized seizure in the last 24 hours. Current seizure medication regimen continues levetiracetam 750 mg IV q.12 hours, oxcarbazepine 1200 mg p.o. b.i.d., felbamate 600 mg p.o. t.i.d., lamotrigine 250 mg p.o. b.i.d. She appears to be tolerating that regimen. EEG showed generalized slowing but no definite seizure or epileptiform discharge. In light of her clinical improvement, I do not have any new suggestion from a neurology standpoint. I would continue current seizure medication doses through this hospitalization and after discharge. She will have followup in my office as an outpatient. Thanks for asking us to see Ms. Moreno. cc: Ariana Marley III, MD
--- NOTE | 2019-10-13 18:41 | PROGRESS NOTE ---
DATE: 10/13/2019 SUBJECTIVE: The patient is resting comfortably in bed. She is more awake and alert today. She was able to eat breakfast according to the aide in the room. OBJECTIVE: Vital Signs: Temperature 98.7 degrees, blood pressure 107/65, heart rate 88, respirations 16, O2 saturation 98% on room air. General: This is a middle-aged female lying in bed in no acute distress. Heart: S1, S2 normal. Regular rate and rhythm. Lungs: Clear to auscultation bilaterally. Abdomen: Positive bowel sounds. Soft, nontender, nondistended. Extremities: No edema. No cyanosis. No calf tenderness. Neurologic: The patient is alert and oriented x3. LABS: Reviewed. ASSESSMENT AND PLAN: 1. Static encephalopathy. Improved. The patient is more awake and alert today. 2. Breakthrough seizures in the setting of epilepsy. Improved. The patient seems to be tolerating her current regimen. 3. Influenza A and B. The patient should complete her Tamiflu regimen today. 4. Transaminitis. Improved. 5. Deep vein thrombosis prophylaxis. Continue on Lovenox. 6. Disposition. We will plan to discharge the patient back to the [facility] tomorrow. cc: Avelina Galvez MD
[2019-10-14] MEDS: MILK OF MAGNESIA PO SCH ×2 (04:10→08:37)
[2019-10-14] MEDS: MIRALAX PO SCH ×2 (04:10→08:38)
[2019-10-14] MEDS: COLACE PO SCH ×2 (04:10→08:36)
[2019-10-14] MEDS: KEPPRA 750 MG in NS 100 ML IV SCH (04:11)
[2019-10-14 08:04] LABS: AGAP 9; BUN 5 mg/dL (8-22); CALCIUM 8.3 mg/dL (8.8-10.2); CHLORIDE 106 mmol/L (98-107); COSMO 276; CREATININE 0.5 mg/dL (0.5-0.9); ESTIMATED GFR > 60; GLUCOSE 94 mg/dL (70-104); POTASSIUM 3.8 mmol/L (3.5-5.1); SODIUM 140 mmol/L (136-145); TCO2 25 mmol/L (25-35)
[2019-10-14] MEDS: LAMICTAL PO SCH (08:33)
[2019-10-14] MEDS: TRILEPTAL PO SCH (08:35)
[2019-10-14] MEDS: CALTRATE 600 PO SCH (08:36)
[2019-10-14] MEDS: PEPCID PO SCH (08:36)
[2019-10-14] MEDS: LOVENOX SUBQ SCH ×2 (08:37→10:07)
[2019-10-14] MEDS: CLARITIN NG SCH (08:38)
[2019-10-14] MEDS: PRECARE PO SCH (08:38)
[2019-10-14 08:41] LABS: ALB/GLOB RATIO 1.2; ALBUMIN 2.9 g/dL (3.5-5.0); DIRECT BILIRUBIN 0.1 mg/dL (0.00-0.20); TOTAL BILIRUBIN 0.29 mg/dL (0.20-1.00); TOTAL PROTEIN 5.3 g/dL (6.3-8.3)
[2019-10-14] MEDS: PATIENT'S OWN MED PO SCH (08:44)
[2019-10-14] MEDS: MEGACE PO SCH (08:44)
[2019-10-14 11:44] VITALS: BP 123/66
--- NOTE | 2019-10-14 18:56 | NEUROLOGY PROGRESS NOTE ---
DATE: 10/14/2019 Ms. Moreno continues to be a little bit brighter day by day. She has not had clinically recognized seizure. She seems to be tolerating her current seizure medication regimen. From a Neurology standpoint, I believe she can be discharged to her [facility] with the same medication doses that she has had here in the hospital. She has follow-up appointment in my office and I will be glad to see her sooner, if needed. I discussed that with [facility] at the bedside. Thanks for asking Neurology to see Ms. Moreno. cc: MD OMKAR Francisco III
--- NOTE | 2019-10-15 01:49 | DISCHARGE SUMMARY ---
ADMISSION DATE: 10/09/2019 DISCHARGE DATE: 10/14/2019 FINAL DISCHARGE DIAGNOSES: 1. Static encephalopathy. 2. Breakthrough seizures in the setting of epilepsy. 3. Influenza A and B. 4. Transaminitis. 5. Developmental delay. CONSULTATIONS: Neurology consultation with Dr. Smith. IMAGIN. Head CT performed on 10/09/2019 which revealed no acute intracranial disease. 2. Portable chest x-ray performed on 10/09/2019, which revealed no acute disease. HOSPITAL COURSE: Ms. Moreno is a 43-year-old female with a history of developmental delay and epilepsy, who was brought to the ER due to a 3 to 4 day history of increasing seizure frequency. A head CT was done on admission that revealed no acute disease. This patient was swabbed for the flu and came back positive for influenza A and influenza B. She was also noted to be dehydrated. The patient was then admitted to the hospitalist service. IV fluids were started as well as Tamiflu and Neurology was consulted. After being seen by the neurologist, adjustments were made to the patient's seizure medications. Slowly over the course of the hospitalization, the patient's mental status improved and she was starting to feel better and was able to eat her meals without any difficulty. She had no further seizures while hospitalized once adjustments were made to her medications. The patient completed a course of Tamiflu for her influenza A and B and was noted to be back to her baseline level of function on 10/14/2019. The [facility] DISCHARGE MEDICATIONS: 1. Lamictal 250 mg oral twice a day. 2. Trileptal 1200 mg oral twice a day. 3. Multivitamin 1 tab oral every morning. 4. Boniva 150 mg oral once a month. 5. MiraLAX 17 g oral twice a day. 6. Megace 40 mg oral twice a day. 7. Calcium 600 mg oral twice a day. 8. Singulair 10 mg oral daily. 9. Pepcid 20 mg oral twice a day. 10. Benadryl 25 mg oral every 6 hours p.r.n. for itching. 11. Felbamate 600 mg oral 3 times a day. 12. Colace 100 mg oral twice a day. 13. Robitussin 10 mL oral every 4 hours p.r.n. for cough. DISCHARGE DIET: Regular diet. ACTIVITY: As tolerated. FOLLOWUP INSTRUCTIONS: The patient will need to follow up with Dr. Marley in 1 to 2 weeks. cc: Avelina Galvez MD
== END 2019-10-14 12:47 | disposition home or self-care (01) | DRG 101 ==
LOC: EDIPHOLD 00:53 → ED 00:53 → SUATTDRO 08:29 → OBSVTOIN 08:29 → 4N 11:29
PROVIDERS: ATTEND Internal Medicine